=== PATIENT | male | born 1995 | race Caucasian/White ===

== ENCOUNTER 2022-05-08 17:56 | Emergency (ER) | payer OTHER, SELFPAY ==
[2022-05-08] VITALS (19 sets, daily range): BP systolic 95–151; BP diastolic 57–78; PULSE 67–113; RESP 14–25; TEMP 36.4; O2SAT 99–100
--- NOTE | ~2022-05-08 | XR_ITS ---
EXAMINATION: XR chest 2V 05/08/2022 19:41 INDICATION: Syncope PROCEDURE: 2 view chest COMPARISON: No prior studies for comparison. FINDINGS: The lungs are clear. The cardiomediastinal silhouette is within normal limits. There are no pleural effusions. There is no pneumothorax suspected. IMPRESSION: 1: NO ACUTE CARDIOPULMONARY DISEASE. Reviewed, dictated and finalized at location A.
--- NOTE | 2022-05-08 18:11 | ECG_ITS ---
Measurements Intervals [place] Rate: 85 P: 31 RI: 120 QRS: -33 QRSD: 106 T: 61 QT: 368 QTc: 438 Interpretive Statements SINUS RHYTHM LEFT AXIS DEVIATION DELAYED PRECORDIAL R/S TRANSITION BASELINE ARTIFACT- I, II, AVR, V1-V2 BORDERLINE ECG Electronically Signed On 05-08-2022 18:42:28 CDT by Taiwo Mejias D.O.
[2022-05-08 18:55] LABS: Basophils Percent Auto 0.3 % (0.2-1.2); Eosinophils Percent Auto 0.3 % (0-4.4); Hematocrit 40.4 % (42.0-52.0); Immature Granulocyte Absolute 0.07 K/mm3 (0.00-0.031); Immature Granulocyte Percent A 0.5 % (0-0.5); Lymphocytes Absolute Auto 1.73 K/mm3 (0.9-3.2); Lymphocytes Percent Auto 13.4 % (18.3-44.2); Mean Corpuscular HGB Conc 34.7 g/dl (32-36); Mean Corpuscular Hemoglobin 29.7 pg (26-34); Mean Corpuscular Volume 85.6 fl (80-100); Mean Platelet Volume 9.9 fl (7.4-10.4); Monocytes Absolute Auto 0.7 K/mm3 (0.1-0.6); Monocytes Percent Auto 5.1 % (2.6-8.5); Neutrophils Absolute Auto 10.4 K/mm3 (1.3-6.7); Neutrophils Percent Auto 80.4 % (45.5-73.1); Platelet Count Result 320 k/mm3 (150-375); Red Blood Count 4.72 M/mm3 (4.6-6.20); Red Cell Distribution Width 12.2 % (11.5-14.5)
[2022-05-08 19:00] LABS: Alanine Aminotransferase 21 U/L (6-50); Albumin Level 5.1 g/dL (3.5-5.1); Alkaline Phosphatase 67 U/L (38-126); Anion Gap 10 mmol/L (8-16); Aspartate Amino Transferase 23 U/L (17-59); Bilirubin,Total 0.5 mg/dL (0.2-1.3); Blood Urea Nitrogen 18 mg/dL (9-20); Calcium 9.4 mg/dL (8.4-10.2); Carbon Dioxide 27 mmol/L (22-30); Chloride 106 mmol/L (98-107); Estimated CRCL calculation 113 ml/min; Estimated Glomerular Filt Rate > 60; Glucose 100 mg/dL (65-110); Potassium 4.1 mmol/L (3.4-5.0); Sodium 143 mmol/L (137-145)
[2022-05-08] MEDS: SODIUM CHLORIDE 0.9% IV 1,000 ML 999 ML IV CONT (19:40)
[2022-05-08 20:08] LABS: Troponin I < 0.012 ng/mL (0.000-0.034)
[2022-05-08 20:37] LABS: D Dimer 0.23 ug/mL (<0.48)
--- NOTE | 2022-05-08 20:47 | ED.SYNCOPE ---
HPI - Syncope General Chief Complaint: Syncope Stated Complaint: syncope Time Seen by Provider: 05/08/22 19:00 History of Present Illness HPI narrative: Patient is a 26-year-old male who presents ER after experiencing syncope while on a flight to [place]. Reports he had been working [place] and was traveling back over the last couple days and had been on multiple flights. Reports normal oral intake. Reports he was sitting on the airplane watching a movie when he began to feel warm and flushed. He then woke up to a flight crew scheduler and 2 other passengers around him asking him questions. He had no loss of bowel or bladder. He did not bite his tongue. He reports he was out for 10 to 15 seconds. He was told that while he was unconscious his arms slowly raised up and jerked for a quick. No history of seizures. Patient reports history of previous syncope while in a class in college. Additionally when patient had his blood draw here he became warm and sweaty but did not lose consciousness. He is having no chest pain or shortness of breath. No calf cramping or pain. Patient reports she did not feel any racing of his heart. Related Data Home Medications Medication Instructions Recorded Confirmed No Home Medications 05/08/22 05/08/22 Allergies Allergy/AdvReac Type Severity Reaction Status Date / Time No Known Allergies Allergy Verified 05/08/22 18:32 Review of Systems Review of Systems: All systems reviewed & are unremarkable except as noted in HPI and below Constitutional: Constitutional: Denies chills, Denies fatigue and Denies fever(s) Comments: Warm/flushed ENT: Denies dizziness Cardiovascular: Cardiovascular: Denies chest pain, Denies rapid heart rate and Denies radiating jaw, neck or arm pain Respiratory: Respiratory: Denies cough and Denies dyspnea Gastrointestinal: Gastrointestinal: Denies abdominal pain, Denies diarrhea, Denies nausea and Denies vomiting Neurologic: Denies dizziness, Reports syncope, Denies headache(s), Denies focal weakness and Denies numbness PMFSH Past Medical History Medical History (Updated 05/08/22 @ 20:56 by Hilton Hughes MD) Healthy adult male Surgical History Surgical History (Updated 05/08/22 @ 20:56 by Hilton Hughes MD) No history of previous surgery Social History Social History (Updated 05/08/22 @ 20:56 by Hilton Hughes MD) Smoking status: Never smoker Exam Narrative: GENERAL: Well-appearing, well-nourished, and in no acute distress. HEAD: Normocephalic, atraumatic. ENT: Mucous membranes moist. CHEST: Clear to auscultation. No respiratory distress. HEART: Regular rate and rhythm. No murmur heard. Normal peripheral pulses. EXTREMITIES: Normal range of motion. No edema. SKIN: Warm, dry, no rash. NEURO: Alert and oriented x3. PSYCH: Normal mood and affect. Course Course Emergency Course: Patient informed of results. [place] safe for discharge. No arrhythmia on hall monitor here. Vital Signs Vital signs: Vital Signs Temperature 97.6 F 05/08/22 18:03 Pulse Rate 96 05/08/22 18:03 Respiratory Rate 16 05/08/22 18:03 Blood Pressure 147/60 H 05/08/22 18:03 Pulse Oximetry 100 05/08/22 18:03 Temperature 97.6 F 05/08/22 18:03 Pulse Rate 69 05/08/22 20:23 Respiratory Rate 19 05/08/22 20:23 Blood Pressure 122/78 05/08/22 20:02 Pulse Oximetry 100 05/08/22 20:23 Oxygen Delivery Room Air 05/08/22 18:33 MDM - Syncope Lab Data Result diagrams: 05/08/22 18:38 05/08/22 18:38 Labs: Lab Results 05/08/22 05/08/22 05/08/22 Range/Units 18:38 18:38 19:36 WBC 13.0 H (4.5-10.0) K/mm3 RBC 4.72 (4.6-6.20) M/mm3 Hgb 14.0 (14.0-18.0) g/dL Hct 40.4 L (42.0-52.0) % MCV 85.6 (80-100) fl MCH 29.7 (26-34) pg MCHC 34.7 (32-36) g/dl RDW 12.2 (11.5-14.5) % Plt Count 320 (150-375) k/mm3 MPV 9.9 (7.4-10.4) fl Immature
== END 2022-05-08 21:12 | disposition home or self-care (01) ==
PROVIDERS: Preventive Medicine Aerospace Medicine; Emergency Provider Emergency Medicine
DX: R55 Syncope and collapse (principal); R94.31 Abnormal electrocardiogram [ECG] [EKG]
CPT/HCPCS: 36415; 71046; 80053; 84484; 85025; 85380; 93005; 96360; 99284; J7030